=== PATIENT | male | born 1955 | race Caucasian/White ===

== ENCOUNTER → 2016-07-23 | Outpatient (CLI) | payer OTHER | END | disposition home or self-care (01) | DX: M17.11 Unilateral primary osteoarthritis, right knee (principal) | CPT/HCPCS: 97110 GP; 97150 GO; 97161 GP; 97165 GO ==

== ENCOUNTER 2016-09-02 05:19 | Inpatient (IN) | payer OTHER ==
[~2016-09-02] VITALS: Ht 167.6 cm; Wt 92.9 kg
[~2016-09-02 05:19] MED LIST: FARXIGA10 MG PO; FERROUS SULFAT325 MG PO; HYDROCHLOROTH12.5 M3 PO; INDERAL40 MG PO; K-TAB10 MEQ PO; LIPITOR20 MG PO; LOW DOSE ASPIRI81 M1 PO; METFORMIN HCL1000 M3 PO; NORVASC10 MG PO; VIAGRA50 MG PO; VICTOZA0.6 MG/0.1 SC; ZESTRIL40 MG PO
[2016-09-02 06:00] VITALS: BP 125/80
[2016-09-02 06:27] LABS: POINT-OF-CARE METER ID UU14174212
[2016-09-02 09:58] LABS: POINT-OF-CARE METER ID UU13113675; POINT-OF-CARE USER ID 515036437
[2016-09-02 11:10] VITALS: BP 120/76
[2016-09-02 11:21] LABS: INTER. NORMALIZED RATIO 1.2
[2016-09-02 12:38] LABS: POINT-OF-CARE METER ID UU13113712
[2016-09-02 13:00] VITALS: BP 107/72
[2016-09-02 13:55] VITALS: BP 107/72
[2016-09-02 15:32] VITALS: BP 116/73
[2016-09-02] MEDS ORDERED: VISTARIL25 MG PO (15:58)
[2016-09-02] MEDS ORDERED: PERCOCET 5/31 TABLET PO (15:58)
[2016-09-02] MEDS ORDERED: COUMADIN2.5 MG PO (15:58)
[2016-09-02 16:57] LABS: POINT-OF-CARE METER ID UU13113712
[2016-09-02 20:00] VITALS: BP 127/78
[2016-09-02 22:10] LABS: POINT-OF-CARE METER ID UU13113712
[2016-09-03 00:03] VITALS: BP 129/74
[2016-09-03 04:29] VITALS: BP 146/74
[2016-09-03 05:55] LABS: HEMATOCRIT 35.2 % (38.0-50.0); MCV 87.8 FL (86-99)
[2016-09-03 06:15] LABS: ANION GAP 8 MEQ/L (2-14); CHLORIDE 98 MEQ/L (99-109); GFR ESTIMATE (CALCULATED) > 59 mL/min/; GLUCOSE 151 mg/dL (70-99); INTER. NORMALIZED RATIO 1.2; POTASSIUM 4.1 MEQ/L (3.7-5.4); SAMPLE HEMOLYSIS CHECK 0; SAMPLE ICTERIC CHECK 0; SAMPLE LIPEMIA CHECK 0; SODIUM 132 MEQ/L (136-147); UREA NITROGEN (BUN) 14 mg/dL (9-23)
[2016-09-03 08:00] VITALS: BP 137/78
[2016-09-03 11:08] LABS: POINT-OF-CARE METER ID UU13113712
[2016-09-03 12:06] VITALS: BP 129/65
[2016-09-03 16:01] VITALS: BP 135/72
[2016-09-03 16:12] LABS: POINT-OF-CARE METER ID UU13113712
[2016-09-03 20:15] VITALS: BP 141/81
[2016-09-03 21:45] LABS: POINT-OF-CARE METER ID UU13113712
[2016-09-04 00:22] VITALS: BP 131/79
[2016-09-04 04:30] VITALS: BP 122/86
[2016-09-04 05:27] LABS: HEMATOCRIT 33.2 % (38.0-50.0); MCV 85.3 FL (86-99)
[2016-09-04 05:46] LABS: INTER. NORMALIZED RATIO 1.2; PROTHROMBIN TIME 12.6 (9.2-11.2)
[2016-09-04 07:38] LABS: POINT-OF-CARE METER ID UU13113712
[2016-09-04 08:00] VITALS: BP 126/74
[2016-09-04 11:30] LABS: POINT-OF-CARE METER ID UU13113712
[2016-09-04 12:24] VITALS: BP 128/74
[2016-09-04 15:03] VITALS: BP 119/73
== END 2016-09-04 15:15 | DRG 470 ==
LOC: 2SOUTH 05:19 → 3WEST 05:19 → 2SOUTH 11:02 → 3WEST 09-04 15:15
PROVIDERS: Orthopaedic Surgery
PROC: 0SRC0J9 Replacement of Right Knee Joint with Synthetic Substitute, Cemented, Open Approach (ICD-10-PCS; principal; 2016-09-02)
DX: M17.11 Unilateral primary osteoarthritis, right knee (principal); E11.9 Type 2 diabetes mellitus without complications; I10 Essential (primary) hypertension
CPT/HCPCS: 80048; 82948; 85014; 85018; 85610; C1713; J0690; J1815; J1885; J2250; J2405; J3010; J7050; J7120